=== PATIENT | male | born 2000 | race African-American/Black ===

== ENCOUNTER 2025-03-24 12:30 | Outpatient (REF) | payer OTHER, SELFPAY ==
--- NOTE | ~2025-03-24 | XR_ITS ---
EXAMINATION: XR FOOT, LEFT CLINICAL INFORMATION: S99.922A - Unspecified injury of left foot, initial encounter COMPARISON: None available. TECHNIQUE: AP, lateral, and oblique views of the left foot. FINDINGS: The bones and soft tissues are normal. No fracture. Alignment is anatomic. Joint spaces are maintained. XR/XR foot LT min 3V IMPRESSION: Unremarkable left foot Electronically signed by: Elvis Chairez MD 03/24/2025 01:53 PM EDT
== END 2025-03-24 12:31 | disposition home or self-care (01) ==
LOC: HO.HMGCX 12:30
PROVIDERS: Visit Provider Internal Medicine
DX: S99.922A Unspecified injury of left foot, initial encounter (principal); W19.XXXA Unspecified fall, initial encounter; Y93.67 Activity, basketball
CPT/HCPCS: 73630; 99202

== ENCOUNTER 2025-03-24 12:30 | Outpatient (AMB) | payer OTHER, SELFPAY ==
[2025-03-24 12:35] VITALS: BP 142/70; PULSE 93; TEMP 36.9; O2SAT 98; BMI 28.1
--- NOTE | 2025-03-24 12:35 | MHC.OFFWIV ---
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 Left Foot Pain: - The patient reports persistent pain in the left foot following a fall approximately two months ago. - The injury occurred while playing basketball. - Initial presentation included swelling, which subsided after applying ice and elevating the foot. - Pain persists during both walking and running activities. - The patient denies any prior history of similar injuries to the ankle or foot. - There was no initial bruising. - No pain was reported in the ankle. - The patient reports slight pain with toe movement and significant pain in a specific area on the foot. Medications: - Not currently taking any medications for pain management. Social History: - The patient continues to work despite experiencing pain, indicating moderate pain levels but maintains functional status. Problem List - Pain in left foot Patient Instructions - Use ice and elevate the foot as previously done. - Use proper footwear. - Consider [id number] pain relief such as Tylenol, Advil, or ibuprofen if needed. - Follow directions to receive x-ray examination. 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 motor sensory intact Skin: Normal turgor Physical Exam Vital Signs: Last Vital Signs Temp 98.5 F 03/24/25 12:35 Pulse 93 03/24/25 12:35 BP 142/70 H 03/24/25 12:35 Pulse Ox 98 03/24/25 12:35 Oxygen Delivery Method Room Air 03/24/25 12:35 BMI result Body Mass Index 28.1 Assessment & Plan Assessment & Plan (1) Injury of foot, left: Code(s): S99.922A - Unspecified injury of left foot, initial encounter Qualifiers: Encounter type: initial encounter Qualified Code(s): S99.922A - Unspecified injury of left foot, initial encounter Plan Chief Complaint Persistent pain in left foot post-trauma History of Present Illness The patient is a 24 year old male presenting with pain in the left foot. Left Foot Pain: - The patient reports persistent pain in the left foot following a fall approximately two months ago. - The injury occurred while playing basketball. - Initial presentation included swelling, which subsided after applying ice and elevating the foot. - Pain persists during both walking and running activities. - The patient denies any prior history of similar injuries to the ankle or foot. - There was no initial bruising. - No pain was reported in the ankle. - The patient reports slight pain with toe movement and significant pain in a specific area on the foot. Medications: - Not currently taking any medications for pain management. Social History: - The patient continues to work despite experiencing pain, indicating moderate pain levels but maintains functional status. Problem List - Pain in left foot Patient Instructions - Use ice and elevate the foot as previously done. - Use proper footwear. - Consider [id number] pain relief such as Tylenol, Advil, or ibuprofen if needed. - Follow directions to receive x-ray examination. 15:57 x-ray report came back There is no bony abnormality Patient was notified, at this point I would recommend to follow up with the primary care Coding Level of Care Code New Pt Level 3 (05028) Diagnoses Injury of left foot, initial encounter S99.922A Encounter type: initial encounter
--- OUTSIDE RECORDS SUMMARY | 2025-03-24 13:42 | XMS_ITS | Clinical Summary ---
Author Organization [employer] [facility] rk Address [address] [place] [address] Care Team Providers Care Manager Med Surg Name Role Phone Unavailable Primary Care Provider Unavailabl e Allergies No known active allergies Medications No known medications Social History Tobacco Use Types Packs/Day Years Used Date Smoking Tobacco: Never Assessed Sex and Gender Information Value Date Recorded Sex Assigned at Not on file Legal Sex Male 6:16 PM EST Gender Identity Not on file Sexual Orientation Not on file Last Filed Vital Signs Vital Sign Reading Time Taken Comments Blood Pressure 111/77 06/17/2015 8:12 PM EST Pulse 91 06/17/2015 8:12 PM EST Temperature 37 C (98.6 F) 06/17/2015 8:12 PM EST Respiratory Rate 18 06/17/2015 8:12 PM EST Oxygen Saturation 98% 06/17/2015 8:12 PM EST Inhaled Oxygen Concentration - - Weight 60.8 kg (134 lb) 06/17/2015 6:19 PM EST Height - - Body Mass Index - - Plan of Treatment Not on file Insurance GENERIC NO FAULT NO FAULT PENDING GENERIC NO FAULT NO FAULT PENDING GENERIC NO FAULT NO FAULT PENDING GENERIC NO FAULT NO FAULT PENDING GENERIC NO FAULT NO FAULT PENDING GENERIC [facility] [id number] NO FAULT PENDING GENERIC NO FAULT NO FAULT PENDING GENERIC NO FAULT NO FAULT PENDING GENERIC NO FAULT NO FAULT PENDING GENERIC NO FAULT NO FAULT PENDING GENERIC NO FAULT NO FAULT PENDING GENERIC NO FAULT [address] [place] [id number]
== END 2025-03-24 12:55 | disposition home or self-care (01) ==
PROVIDERS: Visit Provider Internal Medicine
DX: S99.922A Unspecified injury of left foot, initial encounter (principal)

== ENCOUNTER → 2025-03-24 13:38 | Outpatient (BNV) | payer OTHER, SELFPAY | PROVIDERS: Visit Provider Radiology Diagnostic Radiology | DX: S99.922A Unspecified injury of left foot, initial encounter (principal) | CPT/HCPCS: 73630 ==

== ENCOUNTER 2025-03-30 13:10 | Outpatient (AMB) | payer OTHER, SELFPAY ==
--- NOTE | 2025-03-30 13:32 | MHC.OFFWIV ---
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 He noticed the Rash few days ago. Denies any new Cosmetic products, Detergent or Foods. Rash is not Painful or Itchy. Pt also c/o Blurry vision with reading small prints up close - he thinks needs Glasses. Denies any other vision changes or Pain. [facility] Medical History (Updated 03/30/25 @ 13:53 by Senait Sorensen NP) Blurry vision, bilateral Rash and nonspecific skin eruption Review of Systems Const All systems reviewed & are unremarkable except as noted in HPI and below Physical Exam Vital Signs: Last Vital Signs Temp 98.3 F 03/30/25 13:33 Pulse 91 03/30/25 13:33 BP 146/90 H 03/30/25 13:33 Pulse Ox 99 03/30/25 13:33 Oxygen Delivery Method Room Air 03/30/25 13:33 BMI result Body Mass Index 28.1 Const General: no acute distress Nutritional Appearance: well nourished Orientation/consciousness: patient oriented x3 HEENT Head: Yes normocephalic Ears: TM's normal bilaterally and external ear abnormal (Maculopapular Rash present left Ear Lobe. ) Eyes Pupils: Equal, round and reactive pupils present EOM: EOMs intact bilaterally Direct Ophthalmoscopy: normal light reflex Neuro General: patient oriented x3, gait normal and moves all extremities Cranial nerves: Yes Equal, round and reactive pupils present Psych Speech and movement: Normal speech and movement present Assessment & Plan Assessment & Plan (1) Rash and nonspecific skin eruption: Code(s): R21 - Rash and other nonspecific skin eruption Plan: Ordered Low Dose Hydrocortisone cream for 2 weeks. RTC if no improvement. (2) Blurry vision, bilateral: Code(s): H53.8 - Other visual disturbances Plan: Advised to Call [facility] - will need Eye examination. Medications: New hydrocortisone 1% 1 appl topical BID 28.35 grams 1RF 14 days R21 - Rash and other nonspecific skin eruption Coding Level of Care Code New Pt Level 4 (14270) Diagnoses Rash and nonspecific skin eruption R21 Blurry vision, bilateral H53.8 Time Spent (min) 20
[2025-03-30 13:33] VITALS: BP 146/90; PULSE 91; TEMP 36.8; O2SAT 99; BMI 28.1
--- OUTSIDE RECORDS SUMMARY | 2025-03-30 15:33 | XMS_ITS | Clinical Summary ---
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
== END 2025-03-30 13:57 | disposition home or self-care (01) ==
PROVIDERS: Visit Provider Nurse Practitioner Family
DX: R21 Rash and other nonspecific skin eruption (principal); H53.8 Other visual disturbances

== ENCOUNTER → 2025-03-30 13:10 | Outpatient (BNVA) | payer OTHER, SELFPAY | PROVIDERS: Visit Provider Nurse Practitioner Family | DX: R21 Rash and other nonspecific skin eruption (principal); H53.8 Other visual disturbances | CPT/HCPCS: 99202 ==